=== PATIENT | male | born 1960 | race Caucasian/White ===

== ENCOUNTER → 2019-05-06 | Outpatient (CLI) | payer OTHER | END | disposition home or self-care (01) | LOC: SHCH 15:28 | PROVIDERS: ATTEND Internal Medicine Cardiovascular Disease | DX: R00.2 Palpitations (principal) | CPT/HCPCS: 93306; 93356 ==

== ENCOUNTER → 2020-05-26 | Outpatient (CLI) | payer OTHER | END | disposition home or self-care (01) | LOC: OIH 15:25 | PROVIDERS: ATTEND Family Medicine | DX: Z13.6 Encounter for screening for cardiovascular disorders (principal) | CPT/HCPCS: 75571 ==

== ENCOUNTER → 2020-05-26 | Outpatient (CLI) | payer OTHER | END | disposition home or self-care (01) | LOC: SHCH 15:24 | PROVIDERS: ATTEND Internal Medicine Cardiovascular Disease | DX: I65.23 Occlusion and stenosis of bilateral carotid arteries (principal); R09.89 Other specified symptoms and signs involving the circulatory and respiratory systems | CPT/HCPCS: 93880 ==

== ENCOUNTER → 2021-04-12 | Outpatient (CLI) | payer OTHER | END | disposition home or self-care (01) | LOC: SHCH 10:00 | PROVIDERS: ATTEND Internal Medicine Cardiovascular Disease | DX: I51.7 Cardiomegaly (principal); R06.02 Shortness of breath; R07.9 Chest pain, unspecified | CPT/HCPCS: 93306 ==

== ENCOUNTER 2022-09-28 10:04 | Emergency (ER) | payer OTHER ==
[~2022-09-28] VITALS: Ht 172.7 cm; Wt 90.7 kg
[2022-09-28 10:12] VITALS: BP 131/77
[2022-09-28] MEDS ORDERED: IPRATROPIUM/ALBUTEROL SULFATE 3 ML SOLUTION IH ONE (11:00)
[2022-09-28 11:47] LABS: BASOPHILS % (AUTO) 0.6 % (0.0-5.0); EOSINOPHILS % (AUTO) 1.7 % (0.0-8.0); HEMATOCRIT 47.5 % (42-54); LYMPHOCYTES % (AUTO) 25.3 % (21.0-51.0); MEAN CORPUSCULAR HEMOGLOBIN 28.6 pg (27.0-33.0); MEAN CORPUSCULAR HGB CONC 33.3 g/dL (32.0-36.0); MEAN CORPUSCULAR VOLUME 85.9 fL (79-99); MONOCYTES % (AUTO) 8.6 % (3.0-13.0); NEUTROPHILS % (AUTO) 63.4 % (40.0-77.0); PLATELET COUNT (AUTO) 197 K/uL (130-400); RED BLOOD CELL COUNT(AUTO) 5.53 MIL/uL (4.50-6.20); RED CELL DISTRIBUTION WIDTH 12.5 % (11.0-15.5); WHITE BLOOD COUNT (AUTO) 9.4 K/uL (4.8-10.8)
[2022-09-28 11:56] LABS: CREATININE 1.1 mg/dL (0.5-1.5); POTASSIUM 3.9 mmol/L (3.5-5.1)
[2022-09-28] MEDS ORDERED: METH4TAB3 PO (12:54)
== END 2022-09-28 13:58 | disposition home or self-care (01) ==
LOC: EDH 10:04
DX: J40 Bronchitis, not specified as acute or chronic (principal); J44.9 Chronic obstructive pulmonary disease, unspecified; Z79.52 Long term (current) use of systemic steroids; Z20.822 Contact with and (suspected) exposure to COVID-19
CPT/HCPCS: 99285; 71045; 87635; 80048; 85025; 87804 ×2; 83605; 36415; 93005; 94640; C9803

== ENCOUNTER 2024-08-13 22:41 | Emergency (ER) | payer OTHER ==
[~2024-08-13] VITALS: Ht 175.3 cm; Wt 82.6 kg
[~2024-08-13 22:41] MED LIST: METH4TAB3 PO
[2024-08-13 22:43] VITALS: TEMP 98.6
--- NOTE | 2024-08-13 23:09 | NUR ---
REPEAT EKG DONE ORDERED BY ER PHYSICIAN.
[2024-08-13 23:11] LABS: BASOPHILS # (AUTO) 0.06 K/uL (0.00-0.20); BASOPHILS % (AUTO) 0.8 % (0.0-5.0); EOSINOPHILS # (AUTO) 0.27 K/uL (0.00-0.70); EOSINOPHILS % (AUTO) 3.6 % (0.0-8.0); HEMATOCRIT 41.4 % (42-54); IMMATURE GRANULOCYTE ABSOLUTE 0.02 K/uL (0-1); LYMPHOCYTES # (AUTO) 2.3 K/uL (1.0-4.8); MEAN CORPUSCULAR HEMOGLOBIN 29.7 pg (27.0-33.0); MEAN CORPUSCULAR HGB CONC 34.1 g/dL (32.0-36.0); MEAN CORPUSCULAR VOLUME 87.3 fL (79-99); MONOCYTES # (AUTO) 0.6 K/uL (0.1-1.0); MONOCYTES % (AUTO) 8.5 % (3.0-13.0); NEUTROPHILS # (AUTO) 4.2 K/uL (1.8-7.7); NEUTROPHILS % (AUTO) 55.8 % (40.0-77.0); PLATELET COUNT (AUTO) 168 K/uL (130-400); RED BLOOD CELL COUNT(AUTO) 4.74 MIL/uL (4.50-6.20); RED CELL DISTRIBUTION WIDTH 12.6 % (11.0-15.5); WHITE BLOOD COUNT (AUTO) 7.5 K/uL (4.8-10.8)
--- NOTE | 2024-08-13 23:15 | ERN ---
ED Note History of Present Illness Stated Complaint: C/O ABD PAIN WITH N X V, WEAKNESS Chief Complaint: Abdominal Pain Time Seen by MD: 22:50 Dictation: PATIENT IS A 64 YEAR OLD MALE WITHOUT PAST MEDICAL HISTORY WHO PRESENTED TO THE ER COMPLAINING OF ABDOMINAL PAIN, NAUSEA, DIZZY, STATED THAT SYMPTOMS STARTED TODAY AFTER DINNER, 2 HOURS PREVIOUS BEEN SEEN IN THE EMERGENCY DEPARTMENT. HE DENIES CHEST PAIN, NO FEVER OR CHILLS. Allergies: Coded Allergies: No Known Allergies (Unverified Allergy, Unknown, 09/28/22) Home Meds Active Scripts Methylprednisolone (Medrol) 4 Mg Tab.ds.pk, 4 MG PO DAILY, #7 10 0 Refills Prov:FINESSE MARTIN MORPHOLOGIST 09/28/22 Past Medical History Past Medical History: Other Surgical History: Other Family History: HTN Social History: Lives with family Review of System Dictation NEGATIVE EXCEPT PER HPI CONSTITUTIONAL: NEGATIVE FOR FEVER,CHILLS, AND WEIGHT LOSS EYES: NEGATIVE FOR INJURY, PAIN,REDNESS, AND DISCHARGE ENT: NEGATIVE FOR INJURY,PAIN OR SWELLING CARDIOVASCULAR: DENIES CHEST PAIN, PALPITATIONS, AND EDEMA RESPIRATORY: NEGATIVE FOR SHORTNESS OF BREATH, COUGH, AND WHEEZING, ABDOMEN/GI: ABDOMINAL PAIN AND NAUSEA REPORTED BACK: NEGATIVE FOR INJURY AND PAIN : NEGATIVE FOR INJURY, BLEEDING AND DISCHARGE MS/EXTREMITY: NEGATIVE FOR INJURY AND DEFORMITY SKIN: NEGATIVE FOR RASH, AND DISCOLORATION NEURO: DIZZINESS PSYCH: NEGATIVE FOR SUICIDE IDEATION, HOMICIDAL IDEATION, AND HALLUCINATIONS Initial Vital Sign VS Vital Signs Date Time Temp Pulse Resp B/P (MAP) Pulse Ox O2 Delivery O2 Flow Rate FiO2 08/13/24 22:43 98.6 57 20 117/76 99 Room Air 08/13/24 23:28 0 21 Physical Exam Dictation GENERAL: AWAKE, ALERT, NAD HEAD/FACE: NORMOCEPHALIC, ATRAUMATIC EYES: PERRL, EOMI, VISION AT BASELINE ENT: ORAL CAVITY CLEAR, TMS CLEAR, NO SIGNS OF INFECTION NECK: TRACHEA MIDLINE, SUPPLE, NO NUCHAL RIGIDITY CARDIOVASCULAR: RRR, NORMAL S1/S2, NO MRGS, NO JVD RESPIRATORY: CTAB, NO RESPIRATORY DISTRESS, NO RALES OR WHEEZES ABDOMEN: SOFT , NO TENDER SKIN: WARM, DRY, NORMAL TURGOR, NO RASH MS/EXTREMITY: PULSES EQUAL, NO CYANOSIS, NEUROVASCULAR INTACT, FROM NEURO: COAX4, GCS 15, STRENGTH 5/5, CN 2-12 INTACT, NORMAL CEREBELLAR EXAM, NORMAL GAIT, PSYCH: NORMAL BEHAVIOR, MOOD, AND AFFECT NORMAL Results (Laboratory/Radiology) Laboratory/Radiology Laboratory Tests Test 08/13/24 23:02 White Blood Count 7.5 K/uL (4.8-10.8) Red Blood Count 4.74 MIL/uL (4.50-6.20) Hemoglobin 14.1 g/dL (14.0-18.0) Hematocrit 41.4 % (42-54) L Mean Corpuscular Volume 87.3 fL (79-99) Mean Corpuscular Hemoglobin 29.7 pg (27.0-33.0) Mean Corpuscular Hemoglobin Concent 34.1 g/dL (32.0-36.0) Red Cell Distribution Width 12.6 % (11.0-15.5) Platelet Count 168 K/uL (130-400) Mean Platelet Volume 10.8 fL (7.5-10.5) H Immature Granulocyte % (Auto) 0.3 % (0-1) Neutrophils (%) (Auto) 55.8 % (40.0-77.0) Lymphocytes (%) (Auto) 31.0 % (21.0-51.0) Monocytes (%) (Auto) 8.5 % (3.0-13.0) Eosinophils (%) (Auto) 3.6 % (0.0-8.0) Basophils (%) (Auto) 0.8 % (0.0-5.0) Neutrophils # (Auto) 4.2 K/uL (1.8-7.7) Lymphocytes # (Auto) 2.3 K/uL (1.0-4.8) Monocytes # (Auto) 0.6 K/uL (0.1-1.0) Eosinophils # (Auto) 0.27 K/uL (0.00-0.70) Basophils # (Auto) 0.06 K/uL (0.00-0.20) Absolute Immature Granulocyte (auto 0.02 K/uL (0-1) Nucleated Red Blood Cells 0.0 % (0.0-0.19) Sodium Level 143 mmol/L (136-145) Potassium Level 3.6 mmol/L (3.5-5.1) Chloride Level 107 mmol/L (101-111) Carbon Dioxide Level 28 mmol/L (21-32) Blood Urea Nitrogen 24 mg/dL (7-18) H Creatinine 1.1 mg/dL (0.5-1.3) Glomerular Filtration Rate Calc 76 mL/min (>90) Random Glucose 102 mg/dL (70-105) Total Calcium 8.8 mg/dL (8.5-10.1) Total Creatine Kinase 99 U/L (21-232) Troponin I High Sensitivity 7 ng/L (4-75) B-Type Natriuretic Peptide 14 pg/mL (0-100) ED Course ED Course Orders Procedure Category Date Status Time 12 Lead Ekg Tracing- EKG 08/13/24 Logged Technical 22:47 Aspirin 325mg Ec Tab PHA 08/13/24 Complete (Aspirin 325mg Ec T 23:00 Vital Signs Per CPOE 08/13/24 Transmitted Routine 22:51 B-Type Natriuretic LAB 08/13/24 Complete Peptide 22:51 Chest 1vw RAD 08/13/24 Taken 22:51 Oxygen By Nc/Pulse Ox CPOE 08/13/24 Transmitted 22:51 Maintain Iv CPOE 08/13/24 Transmitted 22:51 Iv Insertion CPOE 08/13/24 Transmitted 22:51 Cardiac Monitoring CPOE 08/13/24 Transmitted 22:51 Pulse Oximetry With CPOE 08/13/24 Transmitted Vs And Prn 22:51 Cbc With Differential LAB 08/13/24 Complete 22:51 Activity: Br W/Brp CPOE 08/13/24 Transmitted With Assist 22:51 Creatine Kinase, Total LAB 08/13/24 Complete 22:51 Troponin I High LAB 08/13/24 Complete Sensitivity 22:51 Urinalysis Profile LAB 08/13/24 In Process 22:51 Basic Metabolic Panel LAB 08/13/24 Complete 22:51 12 Lead Ekg Tracing- EKG 08/13/24 Logged Technical 23:09 0.9%Nacl 1000ml (Ns PHA 08/13/24 Complete 1000ml) 23:30 Ondansetron 4mg Inj PHA 08/14/24 Complete (Zofran 4mg Inj) 00:00 Ct Abdomen W/O CT 08/13/24 Resulted Contrast 23:49 Lipase LAB 08/14/24 Logged 01:30 Hepatic Function Panel LAB 08/14/24 Logged 01:30 Current Medications Medications (Trade) Dose Ordered Sig/Sandeep Route PRN Reason Start Time Stop Time Status Last Admin Dose Admin Aspirin (Aspirin 325mg Ec Tab) 325 mg ONCE ONCE PO 08/13/24 23:00 08/13/24 23:01 DC 08/13/24 23:33 Ondansetron HCl (zoFRAN 4MG INJ) 4 mg ONCE ONCE IVP 08/14/24 00:00 08/14/24 00:01 DC 08/13/24 23:56 Sodium Chloride 1,000 ml @ 0 mls/hr ONCE ONCE IV 08/13/24 23:30 08/13/24 23:31 DC 08/13/24 23:33 Vital Signs Date Time Temp Pulse Resp B/P (MAP) Pulse Ox O2 Delivery O2 Flow Rate FiO2 08/14/24 01:09 57 18 112/64 97 Room Air* 0 21 08/13/24 23:28 52 18 116/62 98 Room Air* 0 21 08/13/24 22:43 98.6 57 20 117/76 99 Room Air Medical Decision Making MDM 64-YEAR-OLD MALE WHO PRESENTS TO ER WITH THE COMPLAINTS OF ABDOMINAL PAIN, NAUSEA, DIZZINESS STARTED 2 HOURS PRIOR ARRIVAL TO THE ER. NO CHEST PAIN., NO FEVER OR CHILLS. INITIAL EKG WAS CONCERNING FOR POSSIBLE ST-ELEVATION, WE WILL REPEAT THE EKG, IT IS SINUS RHYTHM, NO ST-ELEVATION . ABDOMINAL PAIN NAUSEA DIZZINESS -POSSIBLE FOOD INTOXICATION -VIRAL SYNDROME LABORATORY WORKUP CHEST X-RAY IV FLUIDS FOR HYDRATION. CT IMAGING UNDER REPORTED CHOLEDOCHOLITHIASIS. PATIENT IS AFEBRILE NO LEUKOCYTOSIS, WAS RE-EVALUATE THE BEDSIDE, STATES THE ABDOMINAL PAIN NAUSEA RESOLVED. HE WILL BE DISCHARGED HOME. DX & DISP Disposition: Discharge Departure Impression: Primary Impression: Food poisoning Additional Impressions: Abdominal pain, Nausea, Dehydration Condition: Improved Scripts Ondansetron (Ondansetron Odt) 4 Mg Tab.rapdis 4 MG PO Q4HPRN for NAUSEA, #15 TAB Prov: MYRA ARTEAGA MD 08/14/24 Additional Instructions: RETURN TO ER FOR ANY ACUTE OR WORSENING SYMPTOMS. FOLLOW-UP IN 1-2 DAYS WITH PRIMARY PROVIDER FOR RECHECK OF TODAY'S SYMPTOMS. Referrals: RAMONE PAREKH MD (PCP) MYRA ARTEAGA MD August 13, 2024 23:15
[2024-08-13 23:21] LABS: CREATININE 1.1 mg/dL (0.5-1.3); POTASSIUM 3.6 mmol/L (3.5-5.1)
[2024-08-13] MEDS: ASPIRIN 325MG EC TAB PO ONE (23:33)
[2024-08-13] MEDS: 0.9%NACL 1000ML 1,000 ML IV ONE (23:33)
[2024-08-13] MEDS: ondanSETRON 4MG INJ IVP ONE (23:56)
[2024-08-14 00:02] LABS: B-TYPE NATRIURETIC PEPTIDE 14 pg/mL (0-100)
--- NOTE | 2024-08-14 00:44 | HMCIMG ---
CT ABDOMEN W/O CONTRAST HISTORY: Abdominal pain COMPARISON: None TECHNIQUE: Multiple sequential axial images of the abdomen were obtained from the dome of the diaphragm through iliac crests. Patient was not given contrast through intravenous route. Oral contrast was not given. FINDINGS: No pleural effusion is seen bilaterally. There is no evidence of parenchymal disease or pulmonary nodule of the visualized lower lungs. Degenerative changes are seen of the thoracolumbar spine. Gallstone is seen in the contracted gallbladder. Liver measures 15 cm. The liver, spleen, adrenal glands and pancreas are unremarkable. There is no evidence of hydronephrosis bilaterally. No evidence of renal stone is seen. Fecal material is seen in the colon. There are normal-sized retroperitoneal and mesenteric lymph nodes. No ascites is seen. No CT evidence of acute appendicitis is seen. IMPRESSION: 1. Gallstones in the contracted gallbladder. No CT evidence of acute appendicitis is seen. CT was performed with one or more following dose reduction techniques: automated exposure control, adjustment of the mA and kv according to patient's size, or use of a iterative reconstruction technique.
[2024-08-14] MEDS ORDERED: ONDA-243 PO (01:39)
[2024-08-14 01:50] VITALS: BP 107/57; PULSE 67; RESP 20; O2SAT 99
[2024-08-14 02:15] LABS: ALBUMIN 3.5 g/dL (3.5-5.0); BILIRUBIN,DIRECT 0.1 mg/dL (0.0-0.3); BILIRUBIN,TOTAL 0.2 mg/dL (0.2-1.0)
--- NOTE | 2024-08-14 08:36 | HMCIMG ---
CHEST 1VW HISTORY: Chest pain COMPARISON: 09/28/2022 FINDINGS: A frontal projection of the chest was obtained. No acute pulmonary infiltrates is seen. The heart is normal in size. Degenerative changes are seen. No evidence of aortic calcification is seen. IMPRESSION: 1. No acute pulmonary infiltrate is seen.
--- NOTE | 2024-08-14 08:51 | EKG ---
[facility] Test Date: 2024-08-13 Test Time: 22:43:04 Pat Name: KAREN RANDHAWA Department: ED Room: Gender: M Sample Finisher: [facility] [place][note 3] : 1960 Requested By: MYRA LIU Order Number: [id number] Reading MD: Dmitry Penn Measurements Intervals [place] Rate: 56 P: 34 MN: 180 QRS: 256 QRSD: 88 T: 49 QT: 426 QTc: 411 Interpretive Statements Sinus rhythm S1,S2,S3 pattern Electronically Signed On 08-19-2024 07:31:49 CDT by Dmitry Penn Please click the below link to view image of tracing.
--- NOTE | 2024-08-14 08:51 | EKG ---
[facility] Test Date: 2024-08-13 Test Time: 23:04:40 Pat Name: KAREN RANDHAWA Department: ED Room: Gender: M [employer]: 08 : 1960 Requested By: MYRA LIU Order Number: [id number] Reading MD: Dmitry Penn Measurements Intervals [place] Rate: 51 P: 37 DE: 188 QRS: 119 QRSD: 91 T: 49 QT: 433 QTc: 397 Interpretive Statements Sinus rhythm Right axis deviation Compared to ECG 08/13/2024 22:43:04 Right-axis deviation now present ST (T wave) deviation no longer present Myocardial infarct finding no longer present Electronically Signed On 08-19-2024 07:32:00 CDT by Dmitry Penn Please click the below link to view image of tracing.
== END 2024-08-14 01:52 | disposition home or self-care (01) ==
LOC: EDH 22:41
DX: A05.9 Bacterial foodborne intoxication, unspecified (principal); E86.0 Dehydration; R10.9 Unspecified abdominal pain; R11.0 Nausea; Z79.52 Long term (current) use of systemic steroids
CPT/HCPCS: 99285; 96374; 74150; 71045; 96361; 82550; 80076; 84484; 80048; 83880; 83690; 85025; 36415; 93005 ×2; J7030; J2405